=== PATIENT | female | born 1980 | race Caucasian/White ===

== ENCOUNTER → 2022-06-02 | Outpatient (CLI) | payer MEDICARE, MEDICAID ==
[2022-06-02 14:23] LABS: APPEARANCE, URINE MANUAL CLEAR (CLEAR); COLOR, URINE MANUAL YELLOW (YELLOW)
[2022-06-02 14:25] LABS: BILIRUBIN, URINE MANUAL NEGATIVE (NEGATIVE); BLOOD URINE MANUAL NEGATIVE (NEGATIVE); GLUCOSE, URINE (UA) MANUAL NEGATIVE (NEGATIVE); KETONE, URINE MANUAL NEGATIVE (NEGATIVE); LEUKOCYTE ESTERASE, URINE MAN NEGATIVE (NEGATIVE); NITRITE, URINE MANUAL NEGATIVE (NEGATIVE); PROTEIN, URINE MANUAL NEGATIVE (NEGATIVE); UROBILINOGEN, URINE MANUAL NORMAL (NORMAL)
[2022-06-02 14:28] LABS: HEMATOCRIT 43.4 % (36.0-47.0); HEMOGLOBIN 14.1 g/dl (12.0-15.5); MEAN CORPUSCULAR HGB CONC 32.5 g/dl (32.0-36.5); MEAN CORPUSCULAR VOLUME 98.6 fl (80.0-96.0); PLATELET COUNT, AUTOMATED 215 10^3/uL (150-450); WHITE BLOOD COUNT 10.1 10^3/uL (4.0-10.0)
[2022-06-02 14:54] LABS: BLOOD UREA NITROGEN 14 MG/DL (9-23); CALCIUM LEVEL 9.3 MG/DL (8.5-10.1); CARBON DIOXIDE LEVEL 29 MMOL/L (20-31); CHLORIDE LEVEL 100 MMOL/L (98-107); CREATININE FOR GFR 0.74 MG/DL (0.55-1.30); GLOMERULAR FILTRATION RATE > 60.0 (>58); GLUCOSE, FASTING 92 MG/DL (60-100); POTASSIUM SERUM 3.5 MMOL/L (3.5-5.1); SODIUM LEVEL 137 MMOL/L (136-145)
[2022-06-02 15:51] LABS: ATYPICAL LYMPH 1 % (0-5); BASOPHILS 3 % (0-1); EOSINOPHILS 3 % (0-3); LYMPHOCYTES 16 % (16-44); MONOCYTES 3 % (0-5); NEUTROPHILS 73 % (28-66); PLATELET ESTIMATE NORMAL (NORMAL)
== END ==
LOC: M LAB 13:42
PROVIDERS: ATTEND Urology
DX: N39.41 Urge incontinence (principal); Z78.9 Other specified health status

== ENCOUNTER → 2022-06-08 | Outpatient (CLI) | payer MEDICARE, MEDICAID | LOC: M LABSMTC 11:05 | PROVIDERS: ATTEND Urology | DX: Z20.822 Contact with and (suspected) exposure to COVID-19 (principal); G93.41 Metabolic encephalopathy ==

== ENCOUNTER 2022-11-11 21:15 | Emergency (ER) | payer MEDICARE, MEDICAID ==
[~2022-11-11] VITALS: Ht 154.9 cm; Wt 67.0 kg
[2022-11-11] MEDS ORDERED: NS 1,000 ML IV ONE (21:40)
[2022-11-11 22:24] LABS: BASO % 0.8 % (0.0-1.0); EOS % 0.2 % (0.0-3.0); HEMATOCRIT 40.5 % (36.0-47.0); HEMOGLOBIN 13.9 g/dl (12.0-15.5); LYMPH # 1.4 10^3/uL (1.5-5.0); LYMPH % 28.3 % (24.0-44.0); MEAN CORPUSCULAR HEMOGLOBIN 32.1 pg (27.0-33.0); MEAN CORPUSCULAR HGB CONC 34.3 g/dl (32.0-36.5); MEAN CORPUSCULAR VOLUME 93.5 fl (80.0-96.0); MONO # 0.2 10^3/uL (0.0-0.8); MONO % 4.8 % (2.0-8.0); NEUTROPHILS # 3.3 10^3/uL (1.5-8.5); NEUTROPHILS % 65.7 % (36.0-66.0); PLATELET COUNT, AUTOMATED 212 10^3/uL (150-450); RED BLOOD COUNT 4.33 10^6/uL (4.00-5.40)
[2022-11-11 22:46] LABS: ACETAMINOPHEN LEVEL < 2.0 UG/ML (10.0-20.0); ALBUMIN 4.1 G/DL (3.2-5.2); ALKALINE PHOSPHATASE 62 U/L (46-116); ALT/SGPT 18 U/L (7.0-40); AST/SGOT 22 U/L (<34); BILIRUBIN,DIRECT < 0.1 MG/DL (<0.4); BILIRUBIN,TOTAL 0.3 MG/DL (0.3-1.2); BLOOD UREA NITROGEN 12 MG/DL (9-23); CALCIUM LEVEL 8.6 MG/DL (8.5-10.1); CARBON DIOXIDE LEVEL 27 MMOL/L (20-31); CHLORIDE LEVEL 104 MMOL/L (98-107); CREATININE FOR GFR 0.76 MG/DL (0.55-1.30); GLOMERULAR FILTRATION RATE > 60.0 (>58); GLUCOSE, FASTING 88 MG/DL (60-100); POTASSIUM SERUM 3.7 MMOL/L (3.5-5.1); SALICYLATE LEVEL 3.2 MG/DL (<30); SODIUM LEVEL 139 MMOL/L (136-145); TOTAL PROTEIN 7.3 G/DL (5.7-8.2)
[2022-11-11 22:48] LABS: THYROID STIMULATING HORMONE 1.859 uIU/ML (0.55-4.78)
[2022-11-11 22:56] LABS: RSV AMPLIFICATION NEGATIVE (NEGATIVE)
[2022-11-11] MEDS ORDERED: diphenhydrAMINE 50MG/ML VIAL IV STA (23:04)
[2022-11-12 00:30] VITALS: BP 115/56
[2022-11-12 00:45] LABS: AMPHETAMINES LEVEL URINE NEGATIVE (NEGATIVE); BARBITURATES URINE NEGATIVE (NEGATIVE); BENZODIAZEPINES URINE NEGATIVE (NEGATIVE); COCAINE METABOLITE URINE NEGATIVE (NEGATIVE)
[2022-11-12 00:46] LABS: CANNABINOIDS URINE NEGATIVE (NEGATIVE); METHADONE URINE NEGATIVE (NEGATIVE); OPIATES URINE NEGATIVE (NEGATIVE); PHENCYCLIDINE URINE NEGATIVE (NEGATIVE)
== END 2022-11-12 02:13 | disposition home or self-care (01) ==
LOC: EDBD 21:15 → M ED 21:15
DX: F10.129 Alcohol abuse with intoxication, unspecified (principal); I10 Essential (primary) hypertension; J45.909 Unspecified asthma, uncomplicated; F41.9 Anxiety disorder, unspecified; F32.A Depression, unspecified; K58.9 Irritable bowel syndrome, unspecified; N32.81 Overactive bladder
CPT/HCPCS: 70450; 71045; 80048; 80076; 80143; 80307; 81001; 82077; 82140; 83605; 84443; 84484; 85025; 87631; 93005; 93041; 94760; 96361; 96374; 99285; J1200

== ENCOUNTER 2023-07-14 03:08 | Emergency (ER) | payer MEDICARE, MEDICAID ==
[~2023-07-14] VITALS: Ht 152.4 cm; Wt 62.7 kg
[2023-07-14 06:20] VITALS: BP 138/89; TEMP 98.2; O2SAT 100
== END 2023-07-14 06:50 | disposition home or self-care (01) ==
LOC: M ED 03:08
DX: S06.0X0A Concussion without loss of consciousness, initial encounter (principal); W00.9XXA Unspecified fall due to ice and snow, initial encounter; F32.A Depression, unspecified; F41.9 Anxiety disorder, unspecified; I10 Essential (primary) hypertension; F10.10 Alcohol abuse, uncomplicated; Y92.009 Unspecified place in unspecified non-institutional (private) residence as the place of occurrence of the external cause; Y93.89 Activity, other specified; Y99.9 Unspecified external cause status

== ENCOUNTER 2023-11-20 07:46 | Emergency (ER) | payer MEDICARE, MEDICAID ==
[~2023-11-20] VITALS: Ht 152.4 cm; Wt 58.2 kg
[2023-11-20] MEDS ORDERED: BACT800T5 PO (09:41)
[2023-11-20 09:47] VITALS: BP 120/79; TEMP 97.2; O2SAT 100
== END 2023-11-20 10:06 | disposition home or self-care (01) ==
LOC: M ED 07:46
DX: L29.9 Pruritus, unspecified (principal); W57.XXXA Bitten or stung by nonvenomous insect and other nonvenomous arthropods, initial encounter; Y92.9 Unspecified place or not applicable; Y93.9 Activity, unspecified; Y99.9 Unspecified external cause status; E11.9 Type 2 diabetes mellitus without complications; Z87.442 Personal history of urinary calculi; F43.10 Post-traumatic stress disorder, unspecified; F44.4 Conversion disorder with motor symptom or deficit; Z98.84 Bariatric surgery status; Z91.030 Bee allergy status

== ENCOUNTER → 2023-12-04 | Outpatient (CLI) | payer MEDICAID, MEDICARE ==
[~2023-12-04] MED LIST: BACT800T5 PO
== END ==
LOC: M RAD 10:59
PROVIDERS: ATTEND Physical Medicine & Rehabilitation Pain Medicine
DX: M54.12 Radiculopathy, cervical region (principal)

== ENCOUNTER 2024-02-20 16:26 | Emergency (ER) | payer MEDICARE, MEDICAID ==
[~2024-02-20] VITALS: Ht 152.4 cm; Wt 53.2 kg
[2024-02-20 17:52] LABS: BASO # 0.1 10^3/uL (0.0-0.2); BASO % 0.6 % (0.0-1.0); EOS # 0.1 10^3/uL (0.0-0.5); EOS % 0.7 % (0.0-3.0); HEMATOCRIT 42.2 % (36.0-47.0); HEMOGLOBIN 14.1 g/dl (12.0-15.5); LYMPH % 24.4 % (24.0-44.0); MEAN CORPUSCULAR HEMOGLOBIN 33.3 pg (27.0-33.0); MEAN CORPUSCULAR HGB CONC 33.4 g/dl (32.0-36.5); MEAN CORPUSCULAR VOLUME 99.5 fl (80.0-96.0); MONO # 0.5 10^3/uL (0.0-0.8); MONO % 6.4 % (2.0-8.0); NEUTROPHILS # 5.5 10^3/uL (1.5-8.5); NEUTROPHILS % 67.5 % (36.0-66.0); PLATELET COUNT, AUTOMATED 233 10^3/uL (150-450); RED BLOOD COUNT 4.24 10^6/uL (4.00-5.40); WHITE BLOOD COUNT 8.2 10^3/uL (4.0-10.0)
[2024-02-20] MEDS: diazePAM 10MG/2ML SYRINGE IV ONE (17:56)
[2024-02-20 18:15] LABS: INR 0.95; PROTHROMBIN TIME 12.4 SECONDS (12.5-14.5)
[2024-02-20 18:21] LABS: BLOOD UREA NITROGEN 8 MG/DL (9-23); CALCIUM LEVEL 9.3 MG/DL (8.5-10.1); CARBON DIOXIDE LEVEL 25 MMOL/L (20-31); CHLORIDE LEVEL 108 MMOL/L (98-107); GLOMERULAR FILTRATION RATE > 60.0 (>58); GLUCOSE, FASTING 79 MG/DL (60-100); POTASSIUM SERUM 3.5 MMOL/L (3.5-5.1); SODIUM LEVEL 141 MMOL/L (136-145)
[2024-02-20 18:24] LABS: THYROID STIMULATING HORMONE 3.368 uIU/ML (0.55-4.78)
[2024-02-20] MEDS: METOCLOPRAMIDE INJ 10MG/2ML VIAL IV ONE (21:45)
[2024-02-20] MEDS: diphenhydrAMINE 50MG/ML VIAL IV STA (21:45)
[2024-02-20] MEDS: NS 1,000 ML IV ONE (21:45)
[2024-02-20] MEDS: KETOROLAC 30 MG/ML 1ML VIAL IV ONE (21:45)
[2024-02-20 23:36] VITALS: BP 100/70; TEMP 98; O2SAT 98
== END 2024-02-21 00:13 | disposition home or self-care (01) ==
LOC: M ED 16:26 → EDBD 16:26 → M ED 02-21 00:13
DX: G43.909 Migraine, unspecified, not intractable, without status migrainosus (principal); E11.9 Type 2 diabetes mellitus without complications; I10 Essential (primary) hypertension; F41.9 Anxiety disorder, unspecified; F32.9 Major depressive disorder, single episode, unspecified; F43.10 Post-traumatic stress disorder, unspecified; F10.10 Alcohol abuse, uncomplicated; Z91.030 Bee allergy status; Z98.84 Bariatric surgery status; Z87.442 Personal history of urinary calculi; Z79.899 Other long term (current) drug therapy
CPT/HCPCS: 70551; 80048; 83735; 84439; 84443; 85025; 85610; 85730; 93005; 93041; 94760; 96361; 96374; 96375; 99284; J1200; J1885; J2765; J3360

== ENCOUNTER 2024-02-24 19:41 | Observation (INO) | payer MEDICAID, MEDICARE ==
[~2024-02-24] VITALS: Ht 152.4 cm; Wt 52.3 kg
[2024-02-24 20:48] LABS: BASO % 0.6 % (0.0-1.0); EOS % 0.5 % (0.0-3.0); HEMATOCRIT 37.6 % (36.0-47.0); HEMOGLOBIN 12.5 g/dl (12.0-15.5); LYMPH # 2.2 10^3/uL (1.5-5.0); LYMPH % 34.1 % (24.0-44.0); MEAN CORPUSCULAR HGB CONC 33.2 g/dl (32.0-36.5); MEAN CORPUSCULAR VOLUME 102.2 fl (80.0-96.0); MONO # 0.5 10^3/uL (0.0-0.8); MONO % 8.2 % (2.0-8.0); NEUTROPHILS # 3.6 10^3/uL (1.5-8.5); NEUTROPHILS % 56.3 % (36.0-66.0); PLATELET COUNT, AUTOMATED 196 10^3/uL (150-450); RED BLOOD COUNT 3.68 10^6/uL (4.00-5.40); WHITE BLOOD COUNT 6.5 10^3/uL (4.0-10.0)
[2024-02-24 21:07] LABS: INR 0.95; PROTHROMBIN TIME 12.4 SECONDS (12.5-14.5)
[2024-02-24 21:16] LABS: BLOOD UREA NITROGEN 14 MG/DL (9-23); CALCIUM LEVEL 9.1 MG/DL (8.5-10.1); CARBON DIOXIDE LEVEL 27 MMOL/L (20-31); CHLORIDE LEVEL 108 MMOL/L (98-107); CREATININE FOR GFR 0.78 MG/DL (0.55-1.30); GLOMERULAR FILTRATION RATE > 60.0 (>58); GLUCOSE, FASTING 89 MG/DL (60-100); POTASSIUM SERUM 4.1 MMOL/L (3.5-5.1); SODIUM LEVEL 140 MMOL/L (136-145)
[2024-02-24 21:57] LABS: APPEARANCE, URINE HAZY (CLEAR); BACTERIA, URINE AUTO 2+ (NEGATIVE); BILIRUBIN, URINE AUTO NEGATIVE (NEGATIVE); BLOOD, URINE BLOOD NEGATIVE (NEGATIVE); COLOR, URINE YELLOW (YELLOW); GLUCOSE, URINE (UA) AUTO NEGATIVE (NEGATIVE); KETONE, URINE AUTO NEGATIVE (NEGATIVE); LEUKOCYTE ESTERASE, URINE AUTO NEGATIVE (NEGATIVE); MUCUS, URINE SMALL (NEGATIVE); NITRITE, URINE AUTO NEGATIVE (NEGATIVE); PROTEIN, URINE AUTO NEGATIVE (NEGATIVE); RBC, URINE AUTO 1 /HPF (0-3); SPECIFIC GRAVITY URINE AUTO 1.009 (1.002-1.035); SQUAMOUS EPITHELIAL CELL UR AU 17 /HPF (0-6); UROBILINOGEN, URINE AUTO 0.2 mg/dL (0.0-2.0); WBC, URINE AUTO 2 /HPF (0-3)
[2024-02-24 22:01] LABS: CPK CREATINE PHOSPHOKINASE 49 U/L (34-145)
[2024-02-24 22:11] LABS: AMPHETAMINES LEVEL URINE NEGATIVE (NEGATIVE); BARBITURATES URINE NEGATIVE (NEGATIVE); CANNABINOIDS URINE NEGATIVE (NEGATIVE); COCAINE METABOLITE URINE NEGATIVE (NEGATIVE); METHADONE URINE NEGATIVE (NEGATIVE); OPIATES URINE NEGATIVE (NEGATIVE); PHENCYCLIDINE URINE NEGATIVE (NEGATIVE)
[2024-02-24 22:12] LABS: HCG, SERUM QUALITATIVE NEGATIVE (NEGATIVE)
[2024-02-24 22:18] LABS: CK-MB VALUE MASS < 1.0 NG/ML (<3.6); MB/CK RELATIVE INDEX 2.04 (< OR =4)
[2024-02-24 22:30] LABS: BENZODIAZEPINES URINE POSITIVE (NEGATIVE)
[2024-02-24 22:31] LABS: CK-MB VALUE MASS < 1.0 NG/ML (<3.6)
[2024-02-24 22:32] LABS: CPK CREATINE PHOSPHOKINASE 58 U/L (34-145); MB/CK RELATIVE INDEX 1.72 (< OR =4)
[2024-02-24] MEDS ORDERED: ISOVUE-370 76% 100ML VIAL As Ordered ONE (22:44)
[2024-02-24] MEDS: NS 1,000 ML IV ONE (22:47)
[2024-02-24] MEDS: KETOROLAC 30 MG/ML 1ML VIAL IV ONE (22:47)
[2024-02-24] MEDS: METOCLOPRAMIDE INJ 10MG/2ML VIAL IV ONE (22:47)
[2024-02-24] MEDS: diphenhydrAMINE 50MG/ML VIAL IV ONE (22:47)
[2024-02-24 22:50] LABS: ETHYL ALCOHOL (ETHANOL) < 0.003 % (0.000-0.010)
[2024-02-24 22:59] LABS: VENOUS BASE EXCESS -2.2 (-2.0-2.0); VENOUS HCO3 24.3 MMOL/L (23.0-27.0); VENOUS O2 SATURATION 52.8 % (60.0-80.0); VENOUS PARTIAL PRESSURE CO2 48.9 mmHg (38.0-50.0); VENOUS PARTIAL PRESSURE O2 27.7 mmHg (30.0-50.0); VENOUS PH 7.314 UNITS (7.330-7.430); VENOUS STANDARD HCO3 21.7 MMOL/L; VENOUS TOTAL CO2 25.8 MMOL/L (24.0-28.0)
[2024-02-25] MEDS ORDERED: TOPI-21 PO (01:34)
[2024-02-25] MEDS ORDERED: QUET100T2 PO (01:34)
[2024-02-25] MEDS ORDERED: OXYB5TAB14 PO (01:34)
[2024-02-25] MEDS ORDERED: OMEP40CA5 PO (01:34)
[2024-02-25] MEDS ORDERED: CYCL-707 PO (01:34)
[2024-02-25] MEDS ORDERED: HYDR1CAP25 PO (01:34)
[2024-02-25] MEDS ORDERED: TENA50TA PO (01:34)
[2024-02-25] MEDS ORDERED: QUET50TA4 PO (01:34)
[2024-02-25] MEDS ORDERED: MONT10TA97 PO (01:34)
[2024-02-25] MEDS ORDERED: SEMA0.257 INJ (01:34)
[2024-02-25] MEDS ORDERED: AMIT50TA PO (01:34)
[2024-02-25] MEDS ORDERED: BACTDSTA PO (01:34)
[2024-02-25] MEDS ORDERED: VERA180C3 PO (01:34)
[2024-02-25] MEDS ORDERED: SYMB16INH PO (01:34)
[2024-02-25] MEDS ORDERED: PREG200C2 PO (01:34)
[2024-02-25] MEDS ORDERED: TRIA37.5 PO (01:34)
[2024-02-25] MEDS ORDERED: LABE100T6 PO ×2 (01:34→09:33)
[2024-02-25] MEDS ORDERED: LAMO25TA4 PO (01:34)
[2024-02-25] MEDS ORDERED: EPIN0.3I11 INJ (01:34)
[2024-02-25] MEDS ORDERED: BUSP15TA47 PO (01:34)
[2024-02-25] MEDS ORDERED: ALBU8.5H INH (01:34)
[2024-02-25] MEDS ORDERED: DESO0.254 TOP (01:34)
[2024-02-25] MEDS ORDERED: URSO300C3 PO (01:34)
[2024-02-25] MEDS ORDERED: METF10004 PO (01:34)
[2024-02-25] MEDS ORDERED: HOME MED LIST COMPLETE! XX SCH (01:40)
[2024-02-25] MEDS ORDERED: MOM 30ML SUSPENSION UDC PO PRN (02:30)
[2024-02-25] MEDS ORDERED: ALBUTEROL 90 MCG/ACT 8GM HFA INHALER INH PRN (02:30)
[2024-02-25] MEDS ORDERED: ACETAMINOPHEN TAB 650MG DOSE (2X325MG) PO PRN (02:30)
[2024-02-25] MEDS: LR 1,000 ML IV SCH (03:20)
[2024-02-25 06:31] VITALS: TEMP 97.6
[2024-02-25] MEDS ORDERED: MIDODRINE 5 MG TAB PO ONE (08:00)
[2024-02-25] MEDS ORDERED: NS 2,000 ML IV ONE (08:00)
[2024-02-25] MEDS: SYMBICORT 160/4.5MCG INHALER 6GM INH SCH (08:11)
[2024-02-25 08:16] VITALS: O2SAT 99
[2024-02-25 08:30] VITALS: BP 112/72
[2024-02-25] MEDS ORDERED: [UNRECOGNIZED DRUG - OTHER] PO SCH (09:00)
[2024-02-25] MEDS ORDERED: VERA180T43 PO (09:33)
[2024-02-25] MEDS: busPIRone 5 MG TAB PO SCH (10:21)
[2024-02-25] MEDS: lamoTRIgine 25MG TAB PO SCH (10:21)
[2024-02-25] MEDS: TOPIRAMATE (TopAMAX) 25 MG TAB PO SCH (10:22)
[2024-02-25] MEDS: DOCUSATE SODIUM 100MG CAPSULE PO SCH (10:22)
[2024-02-25] MEDS: OMEPRAZOLE 20MG CAP PO SCH (10:22)
[2024-02-25] MEDS: ENOXAPARIN 40MG/0.4ML SYRINGE (J1650 PER 10MG) SC SCH (10:23)
== END 2024-02-25 12:31 | disposition home or self-care (01) ==
LOC: EDBD 19:41 → M ED 19:41 → UNDOADMOB 19:42 → M ED INP 19:42
PROVIDERS: ADMIT Student in an Organized Health Care Education/Training Program; ATTEND Student in an Organized Health Care Education/Training Program
DX: Z91.198 Patient's noncompliance with other medical treatment and regimen for other reason (principal); T50.905A Adverse effect of unspecified drugs, medicaments and biological substances, initial encounter; T50.911A Poisoning by multiple unspecified drugs, medicaments and biological substances, accidental (unintentional), initial encounter; R00.1 Bradycardia, unspecified; I95.2 Hypotension due to drugs; E11.9 Type 2 diabetes mellitus without complications; I65.22 Occlusion and stenosis of left carotid artery; N30.10 Interstitial cystitis (chronic) without hematuria; K58.8 Other irritable bowel syndrome; M79.7 Fibromyalgia; R33.9 Retention of urine, unspecified; N32.81 Overactive bladder; I10 Essential (primary) hypertension; K21.9 Gastro-esophageal reflux disease without esophagitis; E28.2 Polycystic ovarian syndrome; G89.4 Chronic pain syndrome; Z79.84 Long term (current) use of oral hypoglycemic drugs; Z79.899 Other long term (current) drug therapy; Z91.030 Bee allergy status; Z91.040 Latex allergy status; Z88.7 Allergy status to serum and vaccine
CPT/HCPCS: 36415; 70450; 70496; 70498; 71045; 80048; 80307; 81001; 82077; 82140; 82550; 82553; 82803; 83605; 84100; 84484; 84703; 85025; 85610; 93005; 93041; 94760; 96361; 96372; 96374; 96375; 97116; 97161; 99285; G0378; J1200; J1650; J1885; J2765; Q9967

== ENCOUNTER 2024-03-21 10:31 | Emergency (ER) | payer MEDICARE, MEDICAID ==
[~2024-03-21] VITALS: Ht 152.4 cm; Wt 114.0 kg
[~2024-03-21 10:31] MED LIST changes: +ALBU8.5H INH; +AMIT50TA PO; +BACTDSTA PO; +BUSP15TA47 PO; +CYCL-707 PO; +DESO0.254 TOP; +EPIN0.3I11 INJ; +HYDR1CAP25 PO; +LABE100T6 PO; +LAMO25TA4 PO; +METF10004 PO; +MONT10TA97 PO; +OMEP40CA5 PO; +OXYB5TAB14 PO; +PREG200C2 PO; +QUET100T2 PO; +QUET50TA4 PO; +SEMA0.257 INJ; +SYMB16INH PO; +TENA50TA PO; +TOPI-21 PO; +TRIA37.5 PO; +URSO300C3 PO; +VERA180C3 PO; +VERA180T43 PO
[2024-03-21 12:04] LABS: BASO % 0.7 % (0.0-1.0); EOS % 0.7 % (0.0-3.0); HEMATOCRIT 34.5 % (36.0-47.0); HEMOGLOBIN 11.1 g/dl (12.0-15.5); LYMPH # 1.5 10^3/uL (1.5-5.0); LYMPH % 31.7 % (24.0-44.0); MEAN CORPUSCULAR HEMOGLOBIN 32.6 pg (27.0-33.0); MEAN CORPUSCULAR HGB CONC 32.2 g/dl (32.0-36.5); MEAN CORPUSCULAR VOLUME 101.5 fl (80.0-96.0); MONO # 0.4 10^3/uL (0.0-0.8); MONO % 7.6 % (2.0-8.0); NEUTROPHILS # 2.7 10^3/uL (1.5-8.5); NEUTROPHILS % 59.1 % (36.0-66.0); PLATELET COUNT, AUTOMATED 158 10^3/uL (150-450); WHITE BLOOD COUNT 4.6 10^3/uL (4.0-10.0)
[2024-03-21 12:15] LABS: INR 0.96; PARTIAL THROMBOPLASTIN TIME 25.9 SECONDS (24.8-34.2); PROTHROMBIN TIME 12.5 SECONDS (12.5-14.5)
[2024-03-21 12:25] LABS: CK-MB VALUE MASS < 1.0 NG/ML (<3.6)
[2024-03-21 12:28] LABS: BLOOD UREA NITROGEN 10 MG/DL (9-23); CALCIUM LEVEL 9.1 MG/DL (8.5-10.1); CARBON DIOXIDE LEVEL 28 MMOL/L (20-31); CHLORIDE LEVEL 110 MMOL/L (98-107); CPK CREATINE PHOSPHOKINASE 57 U/L (34-145); CREATININE FOR GFR 0.65 MG/DL (0.55-1.30); GLOMERULAR FILTRATION RATE > 60.0 (>58); GLUCOSE, FASTING 82 MG/DL (60-100); MB/CK RELATIVE INDEX 1.75 (< OR =4); POTASSIUM SERUM 3.9 MMOL/L (3.5-5.1); SODIUM LEVEL 140 MMOL/L (136-145)
[2024-03-21] MEDS: NS 1,000 ML IV ONE (13:19)
[2024-03-21 13:45] LABS: AMPHETAMINES LEVEL URINE NEGATIVE (NEGATIVE); BARBITURATES URINE NEGATIVE (NEGATIVE); BENZODIAZEPINES URINE NEGATIVE (NEGATIVE); CANNABINOIDS URINE NEGATIVE (NEGATIVE); COCAINE METABOLITE URINE NEGATIVE (NEGATIVE); METHADONE URINE NEGATIVE (NEGATIVE); OPIATES URINE NEGATIVE (NEGATIVE); PHENCYCLIDINE URINE NEGATIVE (NEGATIVE)
[2024-03-21 14:45] VITALS: BP 116/75
[2024-03-21 15:01] VITALS: TEMP 98.5; O2SAT 99
== END 2024-03-21 15:23 | disposition home or self-care (01) ==
LOC: M ED 10:31 → EDBD 10:31 → M ED 15:23
DX: R42 Dizziness and giddiness (principal); E11.9 Type 2 diabetes mellitus without complications; G43.909 Migraine, unspecified, not intractable, without status migrainosus; F43.10 Post-traumatic stress disorder, unspecified; Z88.7 Allergy status to serum and vaccine; Z91.040 Latex allergy status; Z91.030 Bee allergy status; Z91.048 Other nonmedicinal substance allergy status; Z98.84 Bariatric surgery status; Z79.52 Long term (current) use of systemic steroids; Z79.899 Other long term (current) drug therapy

== ENCOUNTER 2024-07-10 16:48 | Emergency (ER) | payer MEDICARE ==
[~2024-07-10] VITALS: Ht 152.4 cm; Wt 53.6 kg
[2024-07-10 16:53] VITALS: TEMP 99
[2024-07-10 18:22] LABS: BASO % 0.6 % (0.0-1.0); EOS # 0.1 10^3/uL (0.0-0.5); EOS % 0.9 % (0.0-3.0); HEMATOCRIT 37.9 % (36.0-47.0); HEMOGLOBIN 12.3 g/dl (12.0-15.5); LYMPH # 1.9 10^3/uL (1.5-5.0); LYMPH % 30.5 % (24.0-44.0); MEAN CORPUSCULAR HEMOGLOBIN 33.8 pg (27.0-33.0); MEAN CORPUSCULAR HGB CONC 32.5 g/dl (32.0-36.5); MEAN CORPUSCULAR VOLUME 104.1 fl (80.0-96.0); MONO # 0.3 10^3/uL (0.0-0.8); MONO % 5.4 % (2.0-8.0); NEUTROPHILS # 3.9 10^3/uL (1.5-8.5); NEUTROPHILS % 62.3 % (36.0-66.0); PLATELET COUNT, AUTOMATED 188 10^3/uL (150-450); RED BLOOD COUNT 3.64 10^6/uL (4.00-5.40); WHITE BLOOD COUNT 6.3 10^3/uL (4.0-10.0)
[2024-07-10 18:46] LABS: BLOOD UREA NITROGEN 11 MG/DL (9-23); CARBON DIOXIDE LEVEL 26 MMOL/L (20-31); CHLORIDE LEVEL 108 MMOL/L (98-107); CK-MB VALUE MASS < 1.0 NG/ML (<3.6); CPK CREATINE PHOSPHOKINASE 53 U/L (34-145); CREATININE FOR GFR 0.73 MG/DL (0.55-1.30); GLOMERULAR FILTRATION RATE > 60.0 (>58); GLUCOSE, FASTING 87 MG/DL (60-100); MB/CK RELATIVE INDEX 1.88 (< OR =4); POTASSIUM SERUM 3.8 MMOL/L (3.5-5.1); SODIUM LEVEL 141 MMOL/L (136-145)
[2024-07-10 19:06] LABS: ETHYL ALCOHOL (ETHANOL) 0.004 % (0.000-0.010)
[2024-07-10 19:11] LABS: THYROID STIMULATING HORMONE 0.539 uIU/ML (0.55-4.78)
[2024-07-10 20:16] LABS: INR 0.84; PROTHROMBIN TIME 11.8 SECONDS (12.5-14.5)
[2024-07-10 20:27] LABS: CK-MB VALUE MASS < 1.0 NG/ML (<3.6)
[2024-07-10 20:30] VITALS: BP 129/83; O2SAT 100
[2024-07-10 20:30] LABS: CPK CREATINE PHOSPHOKINASE 49 U/L (34-145); MB/CK RELATIVE INDEX 2.04 (< OR =4)
[2024-07-10 21:26] LABS: AMPHETAMINES LEVEL URINE NEGATIVE (NEGATIVE); BARBITURATES URINE NEGATIVE (NEGATIVE)
[2024-07-10 21:27] LABS: BENZODIAZEPINES URINE NEGATIVE (NEGATIVE); CANNABINOIDS URINE NEGATIVE (NEGATIVE); COCAINE METABOLITE URINE NEGATIVE (NEGATIVE); METHADONE URINE NEGATIVE (NEGATIVE); OPIATES URINE NEGATIVE (NEGATIVE); PHENCYCLIDINE URINE NEGATIVE (NEGATIVE)
== END 2024-07-10 20:53 | disposition home or self-care (01) ==
LOC: M ED 16:48
DX: R55 Syncope and collapse (principal); Z98.84 Bariatric surgery status; Z86.79 Personal history of other diseases of the circulatory system; Z88.1 Allergy status to other antibiotic agents; Z88.8 Allergy status to other drugs, medicaments and biological substances; Z91.040 Latex allergy status; Z91.030 Bee allergy status; Z79.52 Long term (current) use of systemic steroids; Z79.899 Other long term (current) drug therapy

== ENCOUNTER → 2024-09-29 | Outpatient (CLI) | payer MEDICARE | LOC: M RAD 07:14 | PROVIDERS: ATTEND Internal Medicine | DX: R26.81 Unsteadiness on feet (principal); S09.90XA Unspecified injury of head, initial encounter; Y92.9 Unspecified place or not applicable; Y93.9 Activity, unspecified; Y99.9 Unspecified external cause status; X58.XXXA Exposure to other specified factors, initial encounter ==

== ENCOUNTER 2025-01-23 16:15 | Emergency (ER) | payer MEDICARE, MEDICAID ==
[~2025-01-23] VITALS: Ht 154.9 cm; Wt 51.4 kg
[~2025-01-23 16:15] MED LIST changes: +LAMO-18 PO; -LAMO25TA4 PO
[2025-01-23] MEDS: ACETAMINOPHEN 500 MG TAB PO ONE (19:11)
[2025-01-23] MEDS: KETOROLAC 30 MG/ML 1 ML VIAL IM ONE (19:12)
[2025-01-23] MEDS: ONDANSETRON 4MG ORAL DISINTEGRATING TAB PO ONE (20:05)
[2025-01-24] MEDS ORDERED: METH-1165 PO (00:14)
[2025-01-24] MEDS ORDERED: MEDR4TAB PO (00:14)
[2025-01-24 00:51] VITALS: BP 118/78; TEMP 97.4; O2SAT 99
== END 2025-01-24 01:10 | disposition home or self-care (01) ==
LOC: M ED 16:15 → EDBD 16:15 → M ED 01-24 01:10
DX: M54.17 Radiculopathy, lumbosacral region (principal); M51.362 Other intervertebral disc degeneration, lumbar region with discogenic back pain and lower extremity pain; K76.89 Other specified diseases of liver; G43.909 Migraine, unspecified, not intractable, without status migrainosus; E78.5 Hyperlipidemia, unspecified; I10 Essential (primary) hypertension; K21.9 Gastro-esophageal reflux disease without esophagitis; E11.9 Type 2 diabetes mellitus without complications; M79.7 Fibromyalgia; F43.10 Post-traumatic stress disorder, unspecified; Z98.84 Bariatric surgery status; Z79.52 Long term (current) use of systemic steroids; Z79.4 Long term (current) use of insulin; Z79.899 Other long term (current) drug therapy; Z88.7 Allergy status to serum and vaccine; Z91.040 Latex allergy status; Z91.030 Bee allergy status
CPT/HCPCS: 72131; 99284; J1885

== ENCOUNTER 2025-02-20 08:01 | Emergency (ER) | payer MEDICARE, MEDICAID ==
[~2025-02-20] VITALS: Ht 152.4 cm; Wt 56.0 kg
[~2025-02-20 08:01] MED LIST changes: +MEDR4TAB PO; +METH-1165 PO; -VERA180C3 PO; +VERA180C5 PO
[2025-02-20 09:04] LABS: BASO # 0.0 10^3/uL (0.0-0.2); BASO % 0.8 % (0.0-1.0); EOS # 0.0 10^3/uL (0.0-0.5); EOS % 0.6 % (0.0-3.0); LYMPH # 1.4 10^3/uL (1.5-5.0); LYMPH % 30.1 % (24.0-44.0); MONO # 0.3 10^3/uL (0.0-0.8); MONO % 7.2 % (2.0-8.0); NEUTROPHILS # 2.9 10^3/uL (1.5-8.5); NEUTROPHILS % 61.1 % (36.0-66.0); PLATELET COUNT, AUTOMATED 177 10^3/uL (150-450)
[2025-02-20] MEDS: NS (Normal Saline) 0.9% 1,000 ML IV ONE ×2 (09:11→10:16)
[2025-02-20 09:51] LABS: ALT/SGPT 22 U/L (7.0-40); AST/SGOT 20 U/L (<34); CALCIUM LEVEL 8.9 MG/DL (8.5-10.1); CARBON DIOXIDE LEVEL 26 MMOL/L (20-31); CHLORIDE LEVEL 107 MMOL/L (98-107); CREATININE FOR GFR 0.77 MG/DL (0.55-1.30); GLOMERULAR FILTRATION RATE > 90.0 (>58); MAGNESIUM LEVEL 2.0 MG/DL (1.8-2.4); POTASSIUM SERUM 3.7 MMOL/L (3.5-5.1); SODIUM LEVEL 142 MMOL/L (136-145)
[2025-02-20 09:52] LABS: ETHYL ALCOHOL (ETHANOL) < 0.003 % (0.000-0.010)
[2025-02-20 09:54] LABS: SALICYLATE LEVEL < 3.0 MG/DL (<30)
[2025-02-20 10:12] LABS: KETONE, URINE AUTO RFX NEGATIVE (NEGATIVE); LEUKOCYTE ESTERASE UR AUTO RFX NEGATIVE (NEGATIVE); MUCUS, URINE RFX SMALL (NEGATIVE); NITRITE, URINE AUTO RFX NEGATIVE (NEGATIVE); RBC, URINE AUTO RFX 0 /HPF (0-3); SQUAM EPITHELIAL CELL UR AURFX 1 /HPF (0-6); WBC, URINE AUTO RFX 0 /HPF (0-3)
[2025-02-20 10:37] LABS: AMPHETAMINES LEVEL URINE NEGATIVE (NEGATIVE); BARBITURATES URINE NEGATIVE (NEGATIVE); BENZODIAZEPINES URINE NEGATIVE (NEGATIVE); COCAINE METABOLITE URINE NEGATIVE (NEGATIVE)
[2025-02-20 10:38] LABS: CANNABINOIDS URINE NEGATIVE (NEGATIVE); METHADONE URINE NEGATIVE (NEGATIVE); OPIATES URINE NEGATIVE (NEGATIVE); PHENCYCLIDINE URINE NEGATIVE (NEGATIVE)
[2025-02-20] MEDS: ATROPINE SULF 0.4 MG/ML 1 ML VIAL IV STA (11:40)
[2025-02-20] MEDS ORDERED: LABE100T40 PO (13:22)
[2025-02-20] MEDS ORDERED: VERA180T42 PO (13:22)
[2025-02-20] MEDS ORDERED: HYDR1CAP25 PO (13:22)
[2025-02-20] MEDS ORDERED: MECL-136 PO (13:22)
[2025-02-20] MEDS ORDERED: BUSP10TA PO (13:22)
[2025-02-20] MEDS ORDERED: LACT20EL PO (13:23)
[2025-02-20] MEDS ORDERED: HOME MED LIST COMPLETE! XX SCH (13:25)
[2025-02-20 17:46] VITALS: TEMP 97
[2025-02-20 18:01] VITALS: BP 105/77; O2SAT 100
== END 2025-02-20 18:44 | disposition home or self-care (01) ==
LOC: EDBD 08:01 → M ED 08:01 → CANBEDREQ 16:21 → M ED 18:44
DX: F19.90 Other psychoactive substance use, unspecified, uncomplicated (principal); T44.7X5A Adverse effect of beta-adrenoreceptor antagonists, initial encounter; F45.0 Somatization disorder; F44.9 Dissociative and conversion disorder, unspecified; I10 Essential (primary) hypertension; K21.9 Gastro-esophageal reflux disease without esophagitis; E28.2 Polycystic ovarian syndrome; K58.9 Irritable bowel syndrome, unspecified; M79.7 Fibromyalgia; E11.9 Type 2 diabetes mellitus without complications; J45.909 Unspecified asthma, uncomplicated; Z91.128 Patient's intentional underdosing of medication regimen for other reason; Z79.52 Long term (current) use of systemic steroids; Z79.4 Long term (current) use of insulin; Z79.899 Other long term (current) drug therapy; Z88.7 Allergy status to serum and vaccine; Z91.030 Bee allergy status; Z91.048 Other nonmedicinal substance allergy status; Z98.84 Bariatric surgery status
CPT/HCPCS: 71045; 80047; 80048; 80076; 80143; 80307; 81001; 82077; 83605; 83735; 84443; 85025; 87040; 93005; 96361; 96374; 99285; J0461